=== PATIENT | female | born 2005 | race Caucasian/White ===

== ENCOUNTER 2025-04-09 18:51 | Emergency (ER) | payer BC, OTHER, SELFPAY ==
[2025-04-09 18:58] VITALS: BP 147/98
--- NOTE | 2025-04-09 21:25 | ED.GENMED ---
History of Present Illness
General
Chief Complaint: Crisis Evaluation
Time Seen by Provider: 04/09/25 19:55
History of Present Illness
History of Present Illness:
19-year-old female with history of depression and anxiety presenting for suicidal ideation with intent. Patient reports symptoms for the past 2 days. She expresses that she wants to suffocate herself. Denies any prior history of self-harm
behavior or inpatient admissions for psychiatric symptoms. She does follow with therapist every week. Denies acute medical symptoms such as chest pain, difficulty breathing, abdominal pain, fever, or additional acute medical complaints
Phy Exam
Physical Exam
Physical Exam:
General: Well-appearing, no clinical signs of dehydration, nontoxic and in no acute distress
HEENT: protecting airway
Neck: appears supple
CV: Normal heart rate
Resp: No accessory muscle use, no increased work of breathing
Abd: Soft and non-distended, no tenderness to palpation, normal bowel sounds
Extremities: No deformities, no swelling
Neuro: alert, no focal neurologic deficit
: deferred
Rectal: deferred
Psych: Normal affect
Skin: Intact
Course
Orders/Labs/Results
Orders:
Orders
04/09/25 19:01
1:1 Observation - Suicide/ Violent Behavior As Directed
04/09/25 19:30
Crisis Consult Urgent
Reason for Consult: has a plan to hurt herself
04/09/25 21:29
Test Result ONCE
04/09/25 21:35
HCG, Urine Qualitative Screen Urgent
Date Specimen was Collected: 04/09/25
Time Specimen was Collected: 21:28
Urine Drug Abuse Screen Urgent
Date Specimen was Collected: 04/09/25
Time Specimen was Collected: 21:28
Vital Signs
Initial and Last Documented VS:
Initial Vital Signs
Temp Pulse Resp BP Pulse Ox
99.5 F 75 15 147/98 99
04/09/25 18:58 04/09/25 18:58 04/09/25 18:58 04/09/25 18:58 04/09/25 18:58
Last Documented Vital Signs
Temp Pulse Resp BP Pulse Ox
99.5 F 74 17 125/83 100
04/09/25 18:58 04/10/25 01:14 04/10/25 01:14 04/09/25 22:05 04/10/25 01:14
MDM/Problems Addressed
MDM/Problems Addressed:
19-year-old female with history of anxiety and depression presenting for suicidal ideations with intent. Vital signs are normal.
On exam patient is resting comfortably, no acute distress. Patient on one-to-one observation given report of SI with plan. Patient seen by crisis. Patient will go on a 201 for inpatient therapy. Currently undergoing bed search
23:50 - Patient accepted to [facility]. Mother is going to escort patient there.
*Pulse Oximetry
SaO2: 99
Oxygen Mode of Delivery: Room air
Patient hypoxic: no
*Critical Care Note
Total Time (30-74mins, 75-104mins- exclusive of procedures): Not Applicable
ED Attending Note
-
Portions of this chart may have been created with voice recognition software.� Occasional wrong word or��sound alike� substitutions may have occurred due to the inherent limitations of voice recognition software.
Discharge Plan
Departure
Patient Disposition: Psych Facility
Date of Disposition: 04/09/25
Time of Disposition: 23:57
Patient with high blood pressure during this ER visit?: No
Condition: Good
Discharge Problem:
Suicidal ideations
Instructions: Suicide prevention, Depression in adults - ED discharge instructions
Referrals:
Siri Daugherty DO [Family Provider, Family Practice]
Activity Restrictions/Additional Instructions:
You were seen in the emergency department for suicidal thoughts
You were seen by the crisis team and are going to [facility] for psychiatric care. You are medically cleared for their evaluation.
Please follow-up closely with your primary care physician as well as her therapist upon discharge.
Return to the emergency department for any worsening of your symptoms, or any development of chest pain, difficulty breathing, abdominal pain with persistent vomiting and inability to tolerate food or liquid by mouth (concern for dehydration),
weakness, headache or confusion, fever greater than 100.4, or any additional symptoms that are concerning to you.
Thank you for choosing [facility].
Interventions
Interventions:
*Risk Screen - Suicide Last Done: 04/09/25 18:58
*General Assessment Last Done: 04/09/25 18:58
*Neglect/Abuse Screening Last Done: 04/09/25 18:58
*ED- Fall Risk Assessment Last Done: 04/10/25 01:14
*ED COVID-19 Vaccine History Last Done: 04/09/25 18:58
*Nursing Disposition Last Done: 04/10/25 01:14
ED-Psychological Assessment Last Done: 04/09/25 19:33
Discharge Date and Time
Discharge Date/Time: 04/10/25 01:15
Print Language: SINHALA
[2025-04-09 22:00] LABS: HCG, Urine Qualitative Screen Negative
[2025-04-09 22:05] VITALS: BP 125/83
== END 2025-04-10 01:15 ==
LOC: EMR 18:51
PROVIDERS: EMERGENCY PHYSICIAN Student in an Organized Health Care Education/Training Program; FAMILY PHYSICIAN Family Medicine
DX: R45.851 Suicidal ideations (principal); F32.A Depression, unspecified; F41.9 Anxiety disorder, unspecified
CPT/HCPCS: 99283; 80306; 81025

== ENCOUNTER → 2025-10-06 14:51 | Outpatient (REF) | payer BC, OTHER, SELFPAY | LOC: HWRAD 14:51 | PROVIDERS: ATTENDING PHYSICIAN Family Medicine | DX: M79.641 Pain in right hand (principal); M79.642 Pain in left hand | CPT/HCPCS: 73130 ==